=== PATIENT | female | born 1955 | race African-American/Black ===

== ENCOUNTER → 2016-10-19 | Day surgery (SDC) | payer OTHER ==
[~2016-10-19] MED LIST: ALPHA LIPOIC A300 MG PO; GINKGO BILOBA120 M1 PO; HAIR, SKIN & N1 EACH PO; MULTI VITAMIN1 EACH PO; NAPROXEN375 M1 PO; VITAMIN C PO
--- NOTE | ~2016-10-19 | OR ---
Unit #: [id number] #: [id number] Patient: JOSE LOAIZA [id number] [address] [address] [id number] O MR#: [id number] NAME: JOSE LOAIZA ROOM: Date of Procedure: 10/19/2016 Admission Date: 10/19/2016 Surgeon: Milton Joy M.D. : 1955 Attending Physician: Milton Joy M.D. Referring Physician: Milton Joy M.D. Primary Care Physician: Deacon Marshall M.D. PROCEDURE OPERATIVE NOTE PREOPERATIVE DIAGNOSIS Screening colonoscopy. POSTOPERATIVE DIAGNOSIS Internal hemorrhoids. PROCEDURE PERFORMED Colonoscopy. ENDOSCOPIST Milton Joy M.D. ANESTHESIA Monitored anesthesia care. DESCRIPTION OF PROCEDURE After adequate explanation of the risks, benefits and alternatives of the procedure, an informed consent was obtained from the patient. The patient was brought to the Endoscopy Suite. Intravenous sedation was administered. The patient was placed in the left lateral position. The colonoscope was introduced into the rectum and advanced to the cecum without difficulty. Once in the cecum, the anatomic landmarks were identified very well. The ileocecal valve was examined. The appendiceal orifice was examined. The scope was slowly withdrawn with the findings as noted in the next section. Adequate mucosal visualization of the colonic mucosa was done upon slow withdrawal. The scope was slowly withdrawn into the rectum and a retroflexed view was also obtained. The scope was withdrawn. The patient tolerated the procedure very well. FINDINGS CECUM: Normal. ILEOCECAL VALVE: Normal. APPENDICEAL ORIFICE: Normal. ASCENDING COLON: Normal. TRANSVERSE COLON: Retained stool. DESCENDING COLON: Normal. Unit #: [id number] #: [id number] Patient: JOSE LOAIZA SIGMOID COLON: Normal. RECTUM: Internal hemorrhoids without evidence of bleeding. Scope withdraw time is over 6 minutes. ASSESSMENT AND PLAN The patient is a 61-year-old female presenting for screening colonoscopy. Noted to have evidence of internal hemorrhoids. No polyps or neoplastic lesions noted. Dictated by... Landy Weller/earl TD: 10/20/2016 09:19 JOB #: [id number] CC: Deacon Marshall M.D. PROCEDURE OPERATIVE NOTE Page 1 of 1 X Milton Joy MD X PROCEDURE OPERATIVE NOTE
== END | disposition home or self-care (01) ==
LOC: COPS 12:47
PROVIDERS: Internal Medicine Gastroenterology
PROC: 0DJD8ZZ Inspection of Lower Intestinal Tract, Via Natural or Artificial Opening Endoscopic (ICD-10-PCS; principal; 2016-10-19 14:30)
DX: Z12.11 Encounter for screening for malignant neoplasm of colon (principal); K64.8 Other hemorrhoids; Z79.899 Other long term (current) drug therapy; Z98.890 Other specified postprocedural states
CPT/HCPCS: J2250